=== PATIENT | female | born 1995 | race Two or more races ===

== ENCOUNTER → 2022-11-16 12:31 | Outpatient (BNVA) | payer MEDICAID, SELFPAY | PROVIDERS: PCP Internal Medicine; Visit Provider Internal Medicine | DX: K91.2 Postsurgical malabsorption, not elsewhere classified (principal); R62.7 Adult failure to thrive; P27.9 Unspecified chronic respiratory disease originating in the perinatal period; P07.30 Preterm newborn, unspecified weeks of gestation | CPT/HCPCS: 99202 ==

== ENCOUNTER 2022-12-07 07:31 | Outpatient (REF) | payer MEDICAID, SELFPAY ==
--- NOTE | ~2022-12-07 | US_ITS ---
EXAMINATION: US ABDOMEN COMPLETE CLINICAL INFORMATION: Postsurgical malabsorption, prolonged parenteral nutrition. COMPARISON: None TECHNIQUE: Real-time imaging of the abdominal viscera. FINDINGS: PANCREAS: The pancreas appears unremarkable except for heterogeneous coarse echotexture, without masses or ductal dilatation. The pancreatic tail is obscured by bowel gas. ABDOMINAL AORTA: The proximal, mid, and distal segments are normal in caliber. INFERIOR VENA CAVA: Visualized portions are normal. LIVER: Normal. The liver is normal in size. The liver contour is normal. Parenchymal echogenicity is normal. No focal hepatic lesion. There is no intrahepatic biliary duct dilatation seen. GALLBLADDER: The gallbladder is physiologically distended. Two mobile gallstones are present measuring just over a centimeter in size each. No evidence of gallbladder wall thickening or pericholecystic fluid. COMMON BILE DUCT: Normal in caliber measuring 0.3 cm in diameter. RIGHT KIDNEY: Normal. No hydronephrosis. No renal calculi or focal parenchymal lesions. The kidney measures 9.7 cm in maximum dimension. LEFT KIDNEY: No hydronephrosis or renal calculi. The kidney measures 9.2 cm in maximum dimension. At the lower pole there is a 1.0 x 1.3 x 1.2 cm cyst present with a focus of mural calcification, probably Bosniak class II. SPLEEN: Normal. The spleen measures 11.2 cm in maximum dimension. FREE FLUID: None. US/US abdomen complete IMPRESSION: 1. Cholelithiasis without evidence of cholecystitis. 2. Probable Bosniak class II left lower pole renal cyst. As this is the first imaging exam, recommend a follow-up renal ultrasound in six months to one year.
[2022-12-07 09:35] LABS: Hematocrit 46.9 % (37.0-47.0); Hemoglobin 15.3 g/dl (12.0-16.0); Mean Corpuscular HGB Conc 32.6 g/dl (31.0-35.0); Mean Corpuscular Hemoglobin 27.5 pg (27.0-33.0); Mean Corpuscular Volume 84.4 fL (80.0-98.0); Mean Platelet Volume 12.5 fL (9.4-12.3); Platelet Count 143 X10*3/uL (160-400); Red Blood Count 5.56 X10*6/uL (4.20-5.50); White Blood Count 6.9 X10*3/uL (4.8-10.8)
[2022-12-07 09:39] LABS: INTERNATIONAL NORM RATIO 1.1 (0.9-1.1); Prothrombin Time 12.3 SEC (10.0-13.1)
[2022-12-07 10:07] LABS: Alanine Aminotransferase 13 U/L (0-31); Albumin Level 4.3 g/dL (3.5-5.0); Alkaline Phosphatase 52 U/L (39-117); Anion Gap 11 (12-20); Aspartate Amino Transferase 17 U/L (5-31); Bilirubin Total 0.8 mg/dL (0.0-1.0); Blood Urea Nitrogen 9 mg/dL (9-16); Calcium 9.2 mg/dL (8.4-10.2); Carbon Dioxide 24 mmol/L (22-29); Chloride 107 mmol/L (96-108); Estimated Glomerular Filt Rate > 60; Glucose Random 87 mg/dL (60-115); Iron 166 mcg/dL (30-160); Magnesium 1.9 mg/dL (1.6-2.6); Percent Iron Saturation 44 % (15-50); Sodium 138 mmol/L (135-145); Total Iron Binding Capacity 380 mcg/dL (228-428); Total Protein 7.1 g/dL (6.5-8.0); Unsaturated Iron Binding 214 ug/dL
[2022-12-07 10:40] LABS: Ferritin 11 ng/mL (10-122); Vitamin B12 500 pg/mL (200-900); Vitamin D 25-OH Total 80.1 ng/mL (>30)
[2022-12-09 17:28] LABS: Calcium, Ionized 5.1 mg/dL (4.8-5.6)
[2022-12-12 06:43] LABS: Zinc 71 mcg/dL (60-130)
[2022-12-13 02:14] LABS: Vitamin A 45 mcg/dL (38-98)
[2022-12-14 03:25] LABS: Alpha-Tocopherol 10.3 mg/L (5.7-19.9); Beta-Gamma Tocopherol <1.0 mg/L (<=4.3)
== END 2022-12-07 07:32 | disposition home or self-care (01) ==
LOC: HO.US 07:31
PROVIDERS: Visit Provider Internal Medicine
DX: K91.2 Postsurgical malabsorption, not elsewhere classified (principal)
CPT/HCPCS: 36415; 76700; 80053; 82306; 82330; 82607; 82728; 82746; 83540; 83735; 84446; 84590; 84630; 85027; 85610

== ENCOUNTER → 2022-12-22 12:58 | Outpatient (BNVA) | payer MEDICAID, SELFPAY | PROVIDERS: PCP Registered Nurse; Referring Provider Internal Medicine; Visit Provider Surgery | DX: K80.20 Calculus of gallbladder without cholecystitis without obstruction (principal); K91.2 Postsurgical malabsorption, not elsewhere classified; D69.6 Thrombocytopenia, unspecified; R62.7 Adult failure to thrive; P27.9 Unspecified chronic respiratory disease originating in the perinatal period; P07.30 Preterm newborn, unspecified weeks of gestation | CPT/HCPCS: 99202 ==

== ENCOUNTER → 2022-12-23 14:34 | Outpatient (BNVA) | payer MEDICAID, SELFPAY | PROVIDERS: PCP Registered Nurse; Visit Provider Hospitalist | DX: J45.40 Moderate persistent asthma, uncomplicated (principal); R06.02 Shortness of breath; R06.1 Stridor | CPT/HCPCS: 99202 ==

== ENCOUNTER 2022-12-26 09:45 | Outpatient (REF) | payer MEDICAID, SELFPAY ==
--- NOTE | ~2022-12-26 | XR_ITS ---
EXAMINATION: XR CHEST 2 VIEWS CLINICAL INFORMATION: Asthma. COMPARISON: Chest radiographs dated 10/25/2017. TECHNIQUE: Frontal and lateral views of the chest were obtained. FINDINGS: The heart, great vessels, pulmonary vasculature and mediastinum are normal. The lungs show no focal infiltrate, effusion or pneumothorax. There is mild hyperinflation. A minimal focus of scar/subsegmental atelectasis is seen at the lateral right base. There is no acute osseous abnormality. XR/XR chest 2V IMPRESSION: 1. There is mild hyperinflation. 2. No focal infiltrate is seen. 3. A minimal focus of scar/subsegmental atelectasis is seen at the lateral right base.
[2022-12-26 10:10] LABS: MANUAL DIFF FLAG NO
[2022-12-26 11:00] LABS: Basophils Absolute Auto 0.1 X10*3/uL (0.0-0.2); Basophils Percent Auto 0.9 % (0-2); Eosinophils Absolute Auto 0.1 X10*3/uL (0.0-0.4); Eosinophils Percent Auto 1.3 % (0-4); Hematocrit 47.3 % (37.0-47.0); Hemoglobin 15.1 g/dl (12.0-16.0); Imm Gran Abs Auto 0.02 X10*3/uL (0.00-0.03); Imm Gran Pct Auto 0.4 % (0.0-0.4); Lymphocytes Absolute Auto 1.5 X10*3/uL (1.2-4.9); Lymphocytes Percent Auto 26.8 % (20-40); Mean Corpuscular HGB Conc 31.9 g/dl (31.0-35.0); Mean Corpuscular Hemoglobin 27.8 pg (27.0-33.0); Mean Corpuscular Volume 86.9 fL (80.0-98.0); Mean Platelet Volume 11.8 fL (9.4-12.3); Monocytes Absolute Auto 0.2 X10*3/uL (0.1-1.2); Monocytes Percent Auto 4.3 % (2-11); Neutrophils Absolute Auto 3.7 x10*3/uL (2.0-8.3); Neutrophils Percent Auto 66.3 % (45-73); Platelet Count 211 X10*3/uL (160-400); Red Blood Count 5.44 X10*6/uL (4.20-5.50); Red Cell Distribution Width 13.1 % (11.0-16.0); White Blood Count 5.5 X10*3/uL (4.8-10.8)
[2022-12-26 11:41] LABS: Erythrocyte Sedimentation Rate 1 MM/HR (0-20)
[2022-12-28 15:38] LABS: IgA 325 mg/dL (47-310); IgG 1279 mg/dL (600-1640); IgM 164 mg/dL (50-300)
== END 2022-12-26 09:46 | disposition home or self-care (01) ==
LOC: HO.LAB 09:45
PROVIDERS: PCP Registered Nurse; Visit Provider Hospitalist
DX: R06.00 Dyspnea, unspecified (principal); J45.909 Unspecified asthma, uncomplicated
CPT/HCPCS: 36415; 71046; 82784; 82785; 85025; 85652; 86003

== ENCOUNTER 2023-01-05 09:03 | Outpatient (REF) | payer MEDICAID, SELFPAY ==
--- NOTE | 2023-01-05 | PFT_ITS ---
FINDINGS: Patient was unable to perform lung volume maneuver despite multiple attempts. Pulmonary function test was canceled. IMPRESSION: Canceled pulmonary function test. MD LUZ ELENA Carmichael/CORNELIO / [phone]
== END 2023-01-05 09:04 | disposition home or self-care (01) ==
LOC: HO.RESP 09:03
PROVIDERS: PCP Registered Nurse; Visit Provider Hospitalist
DX: Z13.89 Encounter for screening for other disorder (principal)

== ENCOUNTER → 2023-01-19 10:40 | Outpatient (BNVA) | payer MEDICAID, SELFPAY | PROVIDERS: PCP Registered Nurse; Visit Provider Hospitalist | DX: J45.40 Moderate persistent asthma, uncomplicated (principal); R06.02 Shortness of breath; R06.1 Stridor | CPT/HCPCS: 99212 ==

== ENCOUNTER 2023-05-15 09:57 | Outpatient (AMB) | payer MEDICAID, SELFPAY ==
--- NOTE | 2023-05-15 10:12 | MHC.OFFVIS ---
Intake Vital Signs 05/15/23 10:13 Height 5 ft Weight 92 lb 9.506 oz BMI 18.1 BP 106/58 L Blood Pressure Location Lt brachial Position Sitting Pulse 99 Intake Visit Reasons: 6 months follow up Intake Note: Maricarmen presents in the office as a follow up. CC: She states that she is not having any concerns today. 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 11/16/22: Pt is here accompanied by her mom. History was obtained with the help of a site interpreter. Pt currently has no gastrointestinal complaints to include abdominal pain, N,V,D, blood in stool, bloating. Reports good appetite. No significant GI losses, has one formed BM daily or every other day. Diet has a good mix of carbohydrates, protein and fat. Pt also drinks a lot of fruit juices and soda. Pertinent hx includes NICU admission in infancy due to premature . Mother reports extensive resection of both large and small intestine and reports pt was on parenteral nutrition for almost 5 years. Has not seen a doctor in almost 10y, recently moved from [facility] and established with a PCP who then referred to GI. Previous GI was in [facility] almost 10 years ago. 05/15/23: No gastrointestinal complaints to include abd pain, N,V, diarrhea. Weight stable. Labs reviewed and no micronutrient/vitamin deficiency noted. LFTs normal, no cholestasis. US Abd revewed - liver appears normal. GB with 1 cm gallstones. Has been seen by Pulm (being managed for asthma) and general surgery (hold off CCY if asymptomatic). [facility] Medical History Asthma Dyspnea Stridor Surgical History H/O resection of large bowel History of resection of small bowel Family History Mother Uterine cancer Hyperthyroidism Asthma Maternal Grandfather Stomach cancer Social History Household Members Other:: mother Alcohol intake: never Patient Tobacco Use Status: Never used Tobacco Review of Systems Const All systems reviewed & are unremarkable except as noted in HPI and below Physical Exam Vital Signs: Last Vital Signs Pulse 99 05/15/23 10:13 BP 106/58 L 05/15/23 10:13 BMI result Body Mass Index 18.1 Gen appear: NAD HEENT: nonicteric, no cervical lymphadenopathy Chest: CTA CVS: Regular S1/S2 Abd: soft, nontender, nondistended, bowel sounds + Ext: no peripheral edema Neuro: A/Ox3, noted to move all extremities spontaneously Psych: interacting appropriately Assessment & Plan Assessment & Plan (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 Currently no concerns for abd bloating/SIBO, high GI output, dysmotility or bleeding. Nutrient check completed as above. Plan: - Cont protein shakes as advised by Computer Graphics Illustrator. - Advised to avoid high osmotic load foods such as sodas or fruit juices - No indication for routine pedialyte however can take it PRN for dehydration/diarrhea. Follow up in a year Coding Level of Care Code Est Pt Level 4 (80311) Diagnoses Short bowel syndrome K91.2
[2023-05-15 10:13] VITALS: BP 106/58; PULSE 99; BMI 18.1
== END 2023-05-15 11:04 | disposition home or self-care (01) ==
PROVIDERS: Visit Provider Internal Medicine
DX: K91.2 Postsurgical malabsorption, not elsewhere classified (principal)
CPT/HCPCS: 99214

== ENCOUNTER → 2023-05-15 09:57 | Outpatient (BNVA) | payer MEDICAID, SELFPAY | PROVIDERS: Visit Provider Internal Medicine | DX: K91.2 Postsurgical malabsorption, not elsewhere classified (principal) | CPT/HCPCS: 99212 ==

== ENCOUNTER 2023-11-22 10:51 | Outpatient (AMB) | payer MEDICAID, SELFPAY ==
[2023-11-22 11:03] VITALS: BP 110/70; PULSE 90; O2SAT 97; BMI 18.1
--- NOTE | 2023-11-22 11:03 | A.OFFVIS_ITS ---
Intake Vital Signs 11/22/23 11:03 Height 5 ft Weight 92 lb 9.506 oz BMI 18.1 BP 110/70 Blood Pressure Location Rt brachial Position Sitting Pulse 90 Pulse Source Pulse Oximeter Pulse Oximetry (%) 97 Oxygen Delivery Method Room Air Intake Visit Reasons: Asthma Allergies ibuprofen [From Advil] Adverse Reaction (Severe, Verified 11/22/23 11:06) Swelling HPI HPI Comments History of Present Illness Details The patient is a 27 year woman who was born prematurely required intubation initially upon . She did require bowel resection now with short-bowel syndrome. Recently she moved from [place] to the [facility] about 2 years ago. Overall the patient has been complaining of worsening shortness of breath. It has been happening now for the last several months. She denies ever having respiratory issues in the past suggesting less likely congenital issue. But the question of a broncho-pulmonary dysplasia (BPD) was brought up. The patient has not had any imaging studies to review or pulmonary function studies therefore I will order those. She was also given a rescue inhaler that has been partially helpful. She also will send a maintenance inhaler although she had not used it yet. She is not where the name. On examination she did have some inspiratory wheezing and some diminished breath sounds bilaterally. Therefore will have to address for any upper airway obstruction issues and or obstructive airway disease. The patient should start the inhaler that she was provided initially. Will also request blood work in addition to pulmonary function studies and chest x-ray. When she starts the inhaler over the weekend she is going to try that. If she is not better she is going to call the office and will send her additional therapies. When she gets her x-ray and PFTs and blood work she will return for follow-up. 01/19/2023 the patient is here for a pulm onary follow-up visit. Overall the patient is doing a lot better. She did take the prednisone and did help her. In addition to that she started the Symbicort and she does use it twice a day. She does rinse her mouth well. Her chest tightness and shortness of breath have improved. She is back to her baseline. She is reassured. We did review her allergy testing she does have some slight allergies and can consider allergy therapy such as singular in the near future. In addition to that the patient had pulmonary function studies. But, the patient could not complete them because she could not follow the instructions in complete the maneuvers. The a chest x-ray was reassuring without any acute disease. No evidence of any pulmonary dysplasia or congenital lung disease that I could appreciate. She likely has allergic asthma and did have some component of stridor which at this point has improved. She has responded well to the Symbicort. If she has any issues she can always call and we can always start Singulair. Otherwise will follow-up in the fall 2022. 11/22/2023 the patient is here for a pulm onary follow-up visit. Overall the patient has been doing well. She does uses Symbicort. She does use it as needed only when she feels chest tightness. She feels like she is doing well. She does not use it often typically less than twice a week. She has not had to use her rescue inhaler. She does have allergies including dust mites. She does not have any carpets although explained to the family that even the bedding can be an issue. She is also allergic to cover chest. There other things that she is allergic to that we may have not checked. I do believe that she has allergic asthma. Therefore, based on the fact that she still having some wheezing on examination I do believe that singular be a good option for her. Therefore she will go ahead and started at nighttime. We did review her last chest x-ray demonstrating just have him hyperinflation explained to them that is related to the asthma. In addition to that we did review her blood work which is reassuring otherwise. Will follow-up in the fall. If the patient has any issues prior to that she will call for an earlier assessment. [facility] Medical History Asthma Dyspnea Stridor Surgical History H/O resection of large bowel History of resection of small bowel Family History Mother Uterine cancer Hyperthyroidism Asthma Maternal Grandfather Stomach cancer Social History Household Members Other:: mother Alcohol intake: never Patient Tobacco Use Status: Never used Tobacco Review of Systems Const Denies fatigue Eyes Denies change in vision and Denies itchy eyes ENT Denies change in voice Card Denies chest pain and Denies dyspnea on exertion Resp Reports cough, Denies dyspnea on exertion and Reports wheezing GI Reports no additional complaints Musc Reports no additional complaints Skin/Breast Reports rash Neuro Reports no additional complaints Endo Reports no additional complaints and Denies fatigue Tucker/Lymph Denies easy bruising Aller/Immun Denies itchy eyes and Reports wheezing Physical Exam Vital Signs: Last Vital Signs Pulse 90 11/22/23 11:03 BP 110/70 11/22/23 11:03 Pulse Ox 97 11/22/23 11:03 Oxygen Delivery Method Room Air 11/22/23 11:03 BMI result Body Mass Index 18.1 Const General: comfortable HEENT Head: Yes normocephalic Neck Neck: Yes supple Chest Chest palpation & inspection: normal inspection of the chest Resp Effort & Inspection: normal respiratory effort and no stridor Auscultation: wheezes and diminished lung sounds Cardio Rate: regular rate Rhythm: regular rhythm Heart sounds: S1 normal heart sound present and S2 normal heart sound present GI Palpation (GI): Soft to palpation Skin General skin exam: no rashes or lesions noted Extrem General: Yes no clubbing, cyanosis or edema Assessment & Plan Assessment & Plan (1) Asthma: Code(s): J45.909 - Unspecified asthma, uncomplicated Qualifiers: Asthma complication type: uncomplicated Asthma persistence: persistent Asthma severity: moderate Qualified Code(s): J45.40 - Moderate persistent asthma, uncomplicated (2) Dyspnea: Comment: resolved Code(s): R06.00 - Dyspnea, unspecified Qualifiers: Dyspnea type: shortness of breath Qualified Code(s): R06.02 - Shortness of breath Plan continue Symbicort BID CHARISSA as needed start singulair F/U 12 months Medications: New montelukast (Singulair) 10 mg PO BEDTIME 30 days 30 tabs 11RF J45.909 - Unspecified asthma, uncomplicated Coding Level of Care Code Est Pt Level 4 (21286) Diagnoses Moderate persistent asthma without complication J45.40 Asthma complication type: uncomplicated Asthma persistence: persistent Asthma severity: moderate Shortness of breath R06.02 Dyspnea type: shortness of breath Time Spent (min) 17
== END 2023-11-22 11:27 | disposition home or self-care (01) ==
PROVIDERS: PCP Registered Nurse; Visit Provider Hospitalist
DX: J45.40 Moderate persistent asthma, uncomplicated (principal); R06.02 Shortness of breath
CPT/HCPCS: 99214

== ENCOUNTER → 2023-11-22 10:51 | Outpatient (BNVA) | payer MEDICAID, SELFPAY | PROVIDERS: PCP Registered Nurse; Visit Provider Hospitalist | DX: J45.40 Moderate persistent asthma, uncomplicated (principal) | CPT/HCPCS: 99212 ==

== ENCOUNTER 2024-06-05 14:29 | Outpatient (AMB) | payer MEDICAID, SELFPAY ==
--- NOTE | 2024-06-05 14:37 | A.OFFVIS_ITS ---
Vital Signs 06/05/24 14:40 Height 5 ft Weight 90 lb BMI 17.6 BP 113/68 Blood Pressure Location Lt brachial Position Sitting Pulse 86 Intake Visit Reasons: 1 year follow up Intake Note: Patient yearly follow up for Short Bowel syndrome Patient denies any GI issues. 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 11/16/22: Pt is here accompanied by her mom. History was obtained with the help of a tank shop supervisor. Pt currently has no gastrointestinal complaints to include abdominal pain, N,V,D, blood in stool, bloating. Reports good appetite. No significant GI losses, has one formed BM daily or every other day. Diet has a good mix of carbohydrates, protein and fat. Pt also drinks a lot of fruit juices and soda. Pertinent hx includes NICU admission in infancy due to premature . Mother reports extensive resection of both large and small intestine and reports pt was on parenteral nutrition for almost 5 years. Has not seen a doctor in almost 10y, recently moved from [facility] and established with a PCP who then referred to GI. Previous GI was in [facility] almost 10 years ago. 05/15/23: No gastrointestinal complaints to include abd pain, N,V, diarrhea. Weight stable. Labs reviewed and no micronutrient/vitamin deficiency noted. LFTs normal, no cholestasis. US Abd revewed - liver appears normal. GB with 1 cm gallstones. Has been seen by Pulm (being managed for asthma) and general surgery (hold off CCY if asymptomatic). 06/05/24: Here for routine follow up. No acute GI issues. No abd pain, N,V,D. Stools are formed and once a day. No blood in stool. Has also remained asymptomatic from gallsgtones standpoint. PFSH Medical History Asthma Stridor Dyspnea Surgical History History of resection of small bowel H/O resection of large bowel Family History Mother Uterine cancer Hyperthyroidism Asthma Maternal Grandfather Stomach cancer Social History Household Members Other:: mother Alcohol intake: never Patient Tobacco Use Status: Never used Tobacco Review of Systems Const All systems reviewed & are unremarkable except as noted in HPI and below Physical Exam Vital Signs: Last Vital Signs Pulse 86 06/05/24 14:40 BP 113/68 06/05/24 14:40 BMI result Body Mass Index 17.6 No apparent distress Nonicteric Abdomen soft, nondistended, abd surgery scars Alert and oriented x3, normal gait Assessment & Plan Assessment & Plan (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 Currently no concerns for abd bloating/SIBO, high GI output, dysmotility or bleeding. Due for a nutrient check - ordered Plan: - Cont protein shakes - Advised to avoid high osmotic load foods such as sodas or fruit juices - Labs ordered as below. Follow up in a year Orders: Orders Complete Blood Count no Diff Today K91.2 - Postsurgical malabsorption, not elsewhere classified Ferritin Today K91.2 - Postsurgical malabsorption, not elsewhere classified Vitamin D 25-OH Total Today K91.2 - Postsurgical malabsorption, not elsewhere classified Calcium Today K91.2 - Postsurgical malabsorption, not elsewhere classified Vitamin E Today K91.2 - Postsurgical malabsorption, not elsewhere classified Vitamin D 1,25 dihydroxy Today K91.2 - Postsurgical malabsorption, not elsewhere classified Vitamin K1 Today K91.2 - Postsurgical malabsorption, not elsewhere classified Comprehensive Met. Panel Today K91.2 - Postsurgical malabsorption, not elsewhere classified IRON PROFILE Today K91.2 - Postsurgical malabsorption, not elsewhere classified Vitamin B12 and Folate Today K91.2 - Postsurgical malabsorption, not elsewhere classified Vitamin A Today K91.2 - Postsurgical malabsorption, not elsewhere classified Magnesium Today K91.2 - Postsurgical malabsorption, not elsewhere classified Coding Level of Care Code Est Pt Level 3 (28087) Diagnoses Short bowel syndrome K91.2
[2024-06-05 14:40] VITALS: BP 113/68; PULSE 86; BMI 17.6
== END 2024-06-05 15:17 | disposition home or self-care (01) ==
PROVIDERS: PCP Registered Nurse; Visit Provider Internal Medicine
DX: K91.2 Postsurgical malabsorption, not elsewhere classified (principal)
CPT/HCPCS: 99213

== ENCOUNTER → 2024-06-05 14:29 | Outpatient (BNVA) | payer MEDICAID, SELFPAY | PROVIDERS: PCP Registered Nurse; Visit Provider Internal Medicine | DX: K91.2 Postsurgical malabsorption, not elsewhere classified (principal) | CPT/HCPCS: 99212 ==

== ENCOUNTER 2024-07-03 09:15 | Outpatient (REF) | payer MEDICAID, SELFPAY ==
[2024-07-03 10:29] LABS: Hematocrit 46.7 % (37.0-47.0); Hemoglobin 15.3 g/dl (12.0-16.0); Mean Corpuscular HGB Conc 32.8 g/dl (31.0-35.0); Mean Corpuscular Hemoglobin 28.3 pg (27.0-33.0); Mean Corpuscular Volume 86.5 fL (80.0-98.0); Mean Platelet Volume 12.9 fL (9.4-12.3); Platelet Count 144 X10*3/uL (160-400); Red Cell Distribution Width 12.9 % (11.0-16.0)
[2024-07-03 11:25] LABS: Alanine Aminotransferase 13 U/L (0-31); Albumin Level 4.6 g/dL (3.5-5.0); Alkaline Phosphatase 55 U/L (39-117); Anion Gap 12 (12-20); Aspartate Amino Transferase 16 U/L (5-31); Bilirubin Total 0.7 mg/dL (0.0-1.0); Blood Urea Nitrogen 9 mg/dL (9-16); Calcium 9.9 mg/dL (8.4-10.2); Carbon Dioxide 25 mmol/L (22-29); Chloride 108 mmol/L (96-108); Estimated Glomerular Filt Rate > 60; Glucose Random 93 mg/dL (60-115); Iron 77 mcg/dL (30-160); Magnesium 2.2 mg/dL (1.6-2.6); Percent Iron Saturation 23 % (15-50); Potassium 4.4 mmol/L (3.3-5.1); Sodium 141 mmol/L (135-145); Total Iron Binding Capacity 340 mcg/dL (228-428); Total Protein 7.8 g/dL (6.5-8.0); Unsaturated Iron Binding 263 ug/dL
[2024-07-03 11:28] LABS: Folate 17.9 ng/mL (> or = 4.0); Vitamin B12 700 pg/mL (200-900)
[2024-07-03 11:30] LABS: Ferritin 34 ng/mL (10-122); Vitamin D 25-OH Total 36.2 ng/mL (>30)
[2024-07-07 10:29] LABS: Alpha-Tocopherol 8.6 mg/L (5.7-19.9); Beta-Gamma Tocopherol <1.0 mg/L (<=4.3)
[2024-07-07 10:40] LABS: Vitamin A 42 mcg/dL (38-98)
[2024-07-07 20:54] LABS: VITAMIN D (1,25 OH) D3 45 pg/mL; Vit D (1,25-Dihydroxy) Total 45 pg/mL (18-72); Vitamin D (1,25 OH) D2 <8 pg/mL
[2024-07-11 12:43] LABS: Vitamin K1 187 pg/mL (130-1500)
== END 2024-07-03 09:16 | disposition home or self-care (01) ==
LOC: HO.LAB 09:15
PROVIDERS: PCP Registered Nurse; Visit Provider Internal Medicine
DX: K91.2 Postsurgical malabsorption, not elsewhere classified (principal)
CPT/HCPCS: 36415; 80053; 82306; 82607; 82652; 82728; 82746; 83540; 83735; 84446; 84590; 84597; 85027

== ENCOUNTER 2024-07-26 11:10 | Outpatient (AMB) | payer MEDICAID, SELFPAY ==
--- NOTE | 2024-07-26 11:20 | MHC.OFFVIS ---
Vital Signs 07/26/24 11:21 Height 5 ft Weight 92 lb 9.506 oz BMI 18.1 BP 100/70 Blood Pressure Location Rt brachial Position Sitting Pulse 90 Pulse Source Pulse Oximeter Pulse Oximetry (%) 99 Oxygen Delivery Method Room Air Intake Visit Reasons: Asthma [employer] Officer Required: No Allergies ibuprofen [From Advil] Adverse Reaction (Severe, Verified 07/26/24 11:23) Swelling HPI Comments Details: The patient is a 27 year woman who was born prematurely required intubation initially upon . She did require bowel resection now with short-bowel syndrome. Recently she moved from [place] to the [facility] about 2 years ago. Overall the patient has been complaining of worsening shortness of breath. It has been happening now for the last several months. She denies ever having respiratory issues in the past suggesting less likely congenital issue. But the question of a broncho-pulmonary dysplasia (BPD) was brought up. The patient has not had any imaging studies to review or pulmonary function studies therefore I will order those. She was also given a rescue inhaler that has been partially helpful. She also will send a maintenance inhaler although she had not used it yet. She is not where the name. On examination she did have some inspiratory wheezing and some diminished breath sounds bilaterally. Therefore will have to address for any upper airway obstruction issues and or obstructive airway disease. The patient should start the inhaler that she was provided initially. Will also request blood work in addition to pulmonary function studies and chest x-ray. When she starts the inhaler over the weekend she is going to try that. If she is not better she is going to call the office and will send her additional therapies. When she gets her x-ray and PFTs and blood work she will return for follow-up. 01/19/2023 the patient is here for a pulmonary follow-up visit. Overall the patient is doing a lot better. She did take the prednisone and did help her. In addition to that she started the Symbicort and she does use it twice a day. She does rinse her mouth well. Her chest tightness and shortness of breath have improved. She is back to her baseline. She is reassured. We did review her allergy testing she does have some slight allergies and can consider allergy therapy such as singular in the near future. In addition to that the patient had pulmonary function studies. But, the patient could not complete them because she could not follow the instructions in complete the maneuvers. The a chest x-ray was reassuring without any acute disease. No evidence of any pulmonary dysplasia or congenital lung disease that I could appreciate. She likely has allergic asthma and did have some component of stridor which at this point has improved. She has responded well to the Symbicort. If she has any issues she can always call and we can always start Singulair. Otherwise will follow-up in the fall 2022. 11/22/2023 the patient is here for a pulmonary follow-up visit. Overall the patient has been doing well. She does uses Symbicort. She does use it as needed only when she feels chest tightness. She feels like she is doing well. She does not use it often typically less than twice a week. She has not had to use her rescue inhaler. She does have allergies including dust mites. She does not have any carpets although explained to the family that even the bedding can be an issue. She is also allergic to cover chest. There other things that she is allergic to that we may have not checked. I do believe that she has allergic asthma. Therefore, based on the fact that she still having some wheezing on examination I do believe that singular be a good option for her. Therefore she will go ahead and started at nighttime. We did review her last chest x-ray demonstrating just have him hyperinflation explained to them that is related to the asthma. In addition to that we did review her blood work which is reassuring otherwise. Will follow-up in the fall of 2023. If the patient has any issues prior to that she will call for an earlier assessment. 07/26/2024 the patient is here for a pulmonary follow-up visit. Overall the patient continues to do well. She does respond well to the Singulair. She does take it every night. Sometimes she forgets and then after a week she started noticing worsening symptoms. She does have worsening allergies and asthma symptoms in the summer. Typically in the winter months she is able to cut back. It is reasonable for her to use her Singulair seasonally. In the meantime she has a Symbicort inhaler. She has not had to use her rescue inhaler which is reassuring. She is stable from a pulmonary standpoint. No additional therapies warranted. If the patient has any worsening symptoms she will call otherwise will follow-up in a year's time. [facility] Medical History Asthma Stridor Dyspnea Surgical History History of resection of small bowel H/O resection of large bowel Family History Mother Uterine cancer Hyperthyroidism Asthma Maternal Grandfather Stomach cancer Social History Household Members Other:: mother Alcohol intake: never Patient Tobacco Use Status: Never used Tobacco Review of Systems Const Denies fatigue Eyes Denies change in vision and Denies itchy eyes ENT Denies change in voice Card Denies chest pain and Denies dyspnea on exertion Resp Reports cough, Denies dyspnea on exertion and Reports wheezing GI Reports no additional complaints Musc Reports no additional complaints Skin/Breast Reports rash Neuro Reports no additional complaints Endo Reports no additional complaints and Denies fatigue Tucker/Lymph Denies easy bruising Aller/Immun Denies itchy eyes and Reports wheezing Physical Exam Vital Signs: Last Vital Signs Pulse 90 07/26/24 11:21 BP 100/70 07/26/24 11:21 Pulse Ox 99 07/26/24 11:21 Oxygen Delivery Method Room Air 07/26/24 11:21 BMI result Body Mass Index 18.1 Const General: comfortable HEENT Head: Yes normocephalic Neck Neck: Yes supple Chest Chest palpation & inspection: normal inspection of the chest Resp Effort & Inspection: normal respiratory effort and no stridor Auscultation: clear to auscultation bilaterally and no wheezes Cardio Rate: regular rate Rhythm: regular rhythm Heart sounds: S1 normal heart sound present and S2 normal heart sound present GI Palpation (GI): Soft to palpation Skin General skin exam: no rashes or lesions noted Extrem General: Yes no clubbing, cyanosis or edema Assessment & Plan Assessment & Plan (1) Asthma: Code(s): J45.909 - Unspecified asthma, uncomplicated Category: Medical Qualifiers: Asthma complication type: uncomplicated Asthma persistence: persistent Asthma severity: moderate Qualified Code(s): J45.40 - Moderate persistent asthma, uncomplicated (2) Dyspnea: Comment: resolved Code(s): R06.00 - Dyspnea, unspecified Category: Medical Qualifiers: Dyspnea type: shortness of breath Qualified Code(s): R06.02 - Shortness of breath Plan continue Symbicort BID CHARISSA as needed continue singulair, seasonally ok F/U 12 months Coding Level of Care Code Est Pt Level 4 (00931) Diagnoses Moderate persistent asthma without complication J45.40 Asthma complication type: uncomplicated Asthma persistence: persistent Asthma severity: moderate Shortness of breath R06.02 Dyspnea type: shortness of breath Time Spent (min) 15
[2024-07-26 11:21] VITALS: BP 100/70; PULSE 90; O2SAT 99; BMI 18.1
== END 2024-07-26 11:38 | disposition home or self-care (01) ==
PROVIDERS: PCP Registered Nurse; Referring Provider Registered Nurse; Visit Provider Hospitalist
DX: J45.40 Moderate persistent asthma, uncomplicated (principal); R06.02 Shortness of breath
CPT/HCPCS: 99214

== ENCOUNTER → 2024-07-26 11:10 | Outpatient (BNVA) | payer MEDICAID, SELFPAY | PROVIDERS: PCP Registered Nurse; Visit Provider Hospitalist | DX: J45.40 Moderate persistent asthma, uncomplicated (principal) | CPT/HCPCS: 99212 ==

== ENCOUNTER 2025-06-02 08:37 | Outpatient (AMB) | payer MEDICAID, SELFPAY ==
--- NOTE | 2025-06-02 08:43 | A.OFFVIS_ITS ---
Vital Signs 06/02/25 08:46 Height 5 ft Weight 92 lb 9.506 oz BMI 18.1 BP 112/72 Blood Pressure Location Lt brachial Position Sitting Pulse 97 Intake Visit Reasons: 1 year follow up Intake Note: Maricarmen presents in the office as a 1 year follow up. CC: She states that she is feeling okay and not having any concerns. 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 11/16/22: Pt is here accompanied by her mom. History was obtained with the help of a transit mixer operator. Pt currently has no gastrointestinal complaints to include abdominal pain, N,V,D, blood in stool, bloating. Reports good appetite. No significant GI losses, has one formed BM daily or every other day. Diet has a good mix of carbohydrates, protein and fat. Pt also drinks a lot of fruit juices and soda. Pertinent hx includes NICU admission in infancy due to premature . Mother reports extensive resection of both large and small intestine and reports pt was on parenteral nutrition for almost 5 years. Has not seen a doctor in almost 10y, recently moved from [facility] and established with a PCP who then referred to GI. Previous GI was in [facility] almost 10 years ago. 05/15/23: No gastrointestinal complaints to include abd pain, N,V, diarrhea. Weight stable. Labs reviewed and no micronutrient/vitamin deficiency noted. LFTs normal, no cholestasis. US Abd revewed - liver appears normal. GB with 1 cm gallstones. Has been seen by Pulm (being managed for asthma) and general surgery (hold off CCY if asymptomatic). 06/05/24: Here for routine follow up. No acute GI issues. No abd pain, N,V,D. Stools are formed and once a day. No blood in stool. Has also remained asymptomatic from gallsgtones standpoint. 06/02/25: Here for follow up. Accompanied by by her mother. Reports no acute issues. No abd pain,N,V. Not currently working. Stays at home. Limited physical activity. Also does not use protein shakes regularly. [facility] Medical History Asthma Stridor Dyspnea Surgical History History of resection of small bowel H/O resection of large bowel Family History Mother Uterine cancer Hyperthyroidism Asthma Maternal Grandfather Stomach cancer Social History Household Members Other:: mother Alcohol intake: never Patient Tobacco Use Status: Never used Tobacco Review of Systems Const All systems reviewed & are unremarkable except as noted in HPI and below Physical Exam Exam Exam: No apparent distress Nonicteric Abdomen soft, nondistended Alert and oriented x3, normal gait Vital Signs: Last Vital Signs Pulse 97 06/02/25 08:46 BP 112/72 06/02/25 08:46 BMI result Body Mass Index 18.1 Assessment & Plan Assessment & Plan (1) Short bowel syndrome: Code(s): K91.2 - Postsurgical malabsorption, not elsewhere classified Category: Medical (2) Cholelithiasis: Code(s): K80.20 - Calculus of gallbladder without cholecystitis without obstruction Category: Medical Plan 1. Currently no concerns for abd bloating/SIBO, high GI output, dysmotility or bleeding. Due for a nutrient check - ordered Plan: - Cont protein shakes - can take alternatives for ensure if better tolerated - Labs ordered as below. 2. Gallstones Noted on prev ultrasound. ASymptomatic currently. Will reorder an ultrasound to ensure no progression. Follow up in a year Orders: Orders US abdomen complete Today K80.20 - Calculus of gallbladder without cholecystitis without obstruction Complete Blood Count no Diff Today K91.2 - Postsurgical malabsorption, not elsewhere classified Comprehensive Met. Panel Today K91.2 - Postsurgical malabsorption, not elsewhere classified Vitamin E Today K91.2 - Postsurgical malabsorption, not elsewhere classified Vitamin A Today K91.2 - Postsurgical malabsorption, not elsewhere classified Vitamin B12 and Folate Today K91.2 - Postsurgical malabsorption, not elsewhere classified Vitamin D 25-OH Total Today K91.2 - Postsurgical malabsorption, not elsewhere classified Magnesium Today K91.2 - Postsurgical malabsorption, not elsewhere classified Coding Level of Care Code Est Pt Level 4 (65489) Diagnoses Short bowel syndrome K91.2 Cholelithiasis K80.20
[2025-06-02 08:46] VITALS: BP 112/72; PULSE 97; BMI 18.1
--- OUTSIDE RECORDS SUMMARY | 2025-06-02 08:59 | XMS_ITS | Clinical Summary ---
Author Organization [employer] Address [address] [place] [address] Care Team Providers Care Director Of Music Therapy Name Role Phone Unavailable Primary Care Provider Unavailabl e Allergies Active Allergy Reactions Criticality Noted Date Comments Ibuprofen Swelling High 10/12/2022 Medications montelukast (Singulair) 10 MG tablet Take 10 mg by mouth at bedtime. 08/02/2024 Active Active Problems Problem Noted Date Diagnosed Date Pityriasis versicolor 12/06/2017 Vitamin D deficiency 12/06/2017 Constipation 10/25/2017 Portosystemic venous shunt 10/25/2017 Short bowel syndrome 10/25/2017 Visual impairment 10/25/2017 Wheezing on auscultation 10/25/2017 Immunizations Immunization Administration Dates Next Due Influenza injectable quadriv alent IIV4 with preservative 12/06/2017 Family History Medical History Relation Name Comments Asthma Mother Thyroid disease Mother Relation Name Status Comments Mother Social History Tobacco Use Types Packs/Day Years Used Date Smoking Tobacco: Never Smokeless Tobacco: Never Tobacco Cessation:Counseling Given: Not Answered Alcohol Use Standard Drinks/Week Comments Never 0 (1 standard drink = 0.6 oz pur e alcohol) Depression Answer Date Recorded Patient Health Questionnaire-9 Score 0 12/15/2022 Housing Stability Answer Date Recorded What is your housing situation today? I have lukaszluz marina teran 08/28/[address] you li ve. Do you have problems with any of the following? None of the above 08/28/2023 Food Insecurity Answer Date Recorded Within the past 12 months, y ou worried that your food would run out before you got money to buy more: Never True 08/28/2023 Within the past 12 months,th e food you bought just didn't last and you didn't have enough money to get more: Never True 03/2023 Transportation Answer Date Recorded In the past 12 months, has l ack of transportation kept you from medical appts, meetings, work or from getting things needed for daily living? No 08/28/2023 Utilities Answer Date Recorded In the past 12 months, has t he electric, gas, oil or water company threatened to shut off services in your home? No 08/28/2023 Depression Answer Date Recorded Patient Health Questionnaire-2 Score 0 12/15/2022 Comments Unknown Sex and Gender Information Value Date Recorded Sex Assigned at Female 08/22/2022 10:32 AM EDT Legal Sex Female 10:32 AM EDT Gender Identity Choose not to disclose 10:32 AM EDT Sexual Orientation Choose not to disclose 2021 10:32 AM EDT Last Filed Vital Signs Vital Sign Reading Time Taken Comments Blood Pressure 131/82 12/15/2022 9:28 AM EST Pulse 114 12/15/2022 9:28 AM EST Temperature 36.9 C (98.5 F) 12/15/2022 9:28 AM EST Respiratory Rate 25 12/15/2022 9:28 AM EST Oxygen Saturation 97% 12/15/2022 9:28 AM EST Inhaled Oxygen Concentration - - Weight 42.2 kg (93 lb) 12/15/2022 9:28 AM EST Height 152.4 cm (5') 12/15/2022 9:28 AM EST Body Mass Index 18.16 12/15/2022 9:28 AM EST Plan of Treatment Health Maintenance Due Date Last Done Comments HIV Screening 1996 Disability Screening 1996 Alcohol/Substance Use Screening 2008 Family Planning (PISQ) 2011 HPV Vaccines (1 - 3-dose series) 2011 Hepatitis C Screening 2014 DTaP/Tdap/Td Vaccines (1 - Tdap) 2015 Hepatitis B Vaccines (1 of 3 - 19+ 3-dose series) 2015 Pap Smear 2017 Depression Screening 12/15/2023 12/15/2022, 12/15/2022 SDOH Screening 12/15/2023 12/15/2022 COVID-19 Vaccine ( - 2023-2 5 season) 2024 Influenza Vaccine (#1) 2025 12/06/2017 Tobacco Screening 10/04/2025 10/04/2024 Zoster Vaccines (1 of 2) 2046 RSV Patients and Patients Aged 60 years or older (1 - 1-dose 75+ series) 2071 HIB Vaccines Aged Out No longer eligi ble based on patient's age to complete this topic Hepatitis A Vaccines Aged Out No long er eligible based on patient's age to complete this topic IPV Vaccines Aged Out No longer eligi ble based on patient's age to complete this topic Meningococcal B Vaccine Aged Out No l onger eligible based on patient's age to complete this topic Meningococcal Vaccine Aged Out No mana robbie eligible based on patient's age to complete this topic Pneumococcal Vaccine: Pediatrics (0 to 5 Years) and At-Risk Patients (6 to 49) Years Aged Out No longer eligible b ased on patient's age to complete this topic RSV under 20 months Aged Out No longe r eligible based on patient's age to complete this topic Rotavirus Vaccines Aged Out No longer eligible based on patient's age to complete this topic Insurance [employer] C3 HSN FULL
== END 2025-06-02 09:44 | disposition home or self-care (01) ==
LOC: HO.HGI 08:38
PROVIDERS: PCP Registered Nurse; Visit Provider Internal Medicine
DX: K91.2 Postsurgical malabsorption, not elsewhere classified (principal); K80.20 Calculus of gallbladder without cholecystitis without obstruction
CPT/HCPCS: 99214

== ENCOUNTER → 2025-06-02 08:37 | Outpatient (BNVA) | payer MEDICAID, SELFPAY | PROVIDERS: PCP Registered Nurse; Visit Provider Internal Medicine | DX: K91.2 Postsurgical malabsorption, not elsewhere classified (principal); K80.20 Calculus of gallbladder without cholecystitis without obstruction | CPT/HCPCS: 99212 ==

== ENCOUNTER 2025-08-01 08:23 | Outpatient (REF) | payer MEDICAID, SELFPAY ==
--- NOTE | ~2025-08-01 | US_ITS ---
CLINICAL HISTORY: K80.20 - Calculus of gallbladder without cholecystitis without obstruction US abdomen complete Comparison: 12/07/2022 08:09 AM EST: US Findings: The visualized pancreas is normal. The aorta and inferior vena cava are normal caliber. The appearance of the liver suggests fatty infiltration. There is no intrahepatic bile duct dilatation. The common duct is 2.0 mm in diameter. There are gallstones. The gallbladder is otherwise normal. There is no sonographic Soto sign. The main portal vein is antegrade. The right kidney is 9.1 cm in length. The left kidney is 8.4 cm in length. The spleen is normal. No ascites. IMPRESSION: 1. Hepatic steatosis. 2. Cholelithiasis This document has been electronically signed by: Ike Elmore MD on 08/02/2025 08:59:47
--- OUTSIDE RECORDS SUMMARY | 2025-08-01 08:32 | XMS_ITS | Clinical Summary ---
Author Organization [employer] Address [address] [place] [address] Care Team Providers Care Mechanical System Technician Name Role Phone Unavailable Primary Care Provider [...] 12/15/2022 9:28 AM EST Plan of Treatment Upcoming Encounters Date Type Department Care Team (Late st Contact Info) Description 12/01/2025 11:00 AM EST Office Visit [facility] [address] [place] [address] Yash, Sandra, OD [address] [place] [address] Health Maintenance Due Date Last Done Comments HIV Screening 1996 Disability Screening 1996 Alcohol/Substance Use Screening 2008 Family Planning (PISQ) 2011 HPV Vaccines (1 - 3-dose series) 2011 Hepatitis C Screening 2014 DTaP/Tdap/Td Vaccines (1 - Tdap) 2015 Hepatitis B Vaccines (1 of 3 - 19+ 3-dose series) 2015 Pap Smear 2017 Depression Screening 12/15/2023 12/15/2022, 12/15/2022 SDOH Screening 12/15/2023 12/15/2022 COVID-19 Vaccine (1 - 2023-2 5 season) 2025 Influenza Vaccine (#1) 2025 12/06/2017 Tobacco Screening [...] patient's age to complete this topic Insurance [employer] C3 N FULL
[2025-08-01 09:50] LABS: Hematocrit 45.8 % (37.0-47.0); Hemoglobin 14.8 g/dl (12.0-16.0); Mean Corpuscular HGB Conc 32.3 g/dl (31.0-35.0); Mean Corpuscular Hemoglobin 27.4 pg (27.0-33.0); Mean Corpuscular Volume 84.7 fL (80.0-98.0); NRBC Abs Auto 0.000 X10*3/uL (0.0-0.012); NRBC Pct Auto 0.0 /100WBC (0.0-0.2); Platelet Count 203 X10*3/uL (160-400); Red Blood Count 5.41 X10*6/uL (4.20-5.50); White Blood Count 7.4 X10*3/uL (4.8-10.8)
[2025-08-01 10:37] LABS: Alanine Aminotransferase 17 U/L (0-31); Albumin Level 4.7 g/dL (3.5-5.0); Alkaline Phosphatase 61 U/L (39-117); Anion Gap 12 (12-20); Aspartate Amino Transferase 21 U/L (5-31); Blood Urea Nitrogen 9 mg/dL (9-16); Calcium 9.2 mg/dL (8.4-10.2); Carbon Dioxide 24 mmol/L (22-29); Chloride 108 mmol/L (96-108); Estimated Glomerular Filt Rate > 60; Magnesium 2.1 mg/dL (1.6-2.6); Potassium 3.5 mmol/L (3.3-5.1); Sodium 140 mmol/L (135-145); Total Protein 7.7 g/dL (6.5-8.0)
[2025-08-01 11:06] LABS: Folate 13.6 ng/mL (> or = 4.0); Vitamin B12 561 pg/mL (200-900)
== END 2025-08-01 08:24 | disposition home or self-care (01) ==
LOC: HO.US 08:23
PROVIDERS: PCP Registered Nurse; Visit Provider Internal Medicine
DX: K80.20 Calculus of gallbladder without cholecystitis without obstruction (principal); K91.2 Postsurgical malabsorption, not elsewhere classified
CPT/HCPCS: 36415; 76700; 80053; 82306; 82607; 82746; 83735; 84446; 84590; 85027

== ENCOUNTER → 2025-08-01 08:27 | Outpatient (BNV) | payer MEDICAID, SELFPAY | PROVIDERS: PCP Registered Nurse; Visit Provider Specialist | DX: K80.20 Calculus of gallbladder without cholecystitis without obstruction (principal); K76.0 Fatty (change of) liver, not elsewhere classified | CPT/HCPCS: 76700 ==

== ENCOUNTER 2025-09-17 10:51 | Outpatient (AMB) | payer MEDICAID, SELFPAY ==
[2025-09-17 10:54] VITALS: BP 110/80; PULSE 120; O2SAT 97; BMI 18.3
--- NOTE | 2025-09-17 10:54 | MHC.OFFVIS ---
Vital Signs 09/17/25 10:54 Height 5 ft Weight 93 lb 11.143 oz BMI 18.3 BP 110/80 Blood Pressure Location Lt brachial Position Sitting Pulse 120 H Pulse Source Pulse Oximeter Pulse Oximetry (%) 97 Oxygen Delivery Method Room Air Intake Visit Reasons: asthma Vice President Education Required: Yes Vice President Education Services: Vice President Education Offered & Declined Vice President Education Name: MD speaks kiswahili Accompanied by: Mother Allergies ibuprofen (From Advil) Adverse Reaction (Severe, Verified 09/17/25 10:56) Swelling HPI Comments Details: The patient is a 29 year woman who was born prematurely required intubation initially upon . She did require bowel resection now with short-bowel syndrome. Recently she moved from [place] to the [facility] about 2 years ago. Overall the patient has been complaining of worsening shortness of breath. It has been happening now for the last several months. She denies ever having respiratory issues in the past suggesting less likely congenital issue. But the question of a broncho-pulmonary dysplasia (BPD) was brought up. The patient has not had any imaging studies to review or pulmonary function studies therefore I will order those. She was also given a rescue inhaler that has been partially helpful. She also will send a maintenance inhaler although she had not used it yet. She is not where the name. On examination she did have some inspiratory wheezing and some diminished breath sounds bilaterally. Therefore will have to address for any upper airway obstruction issues and or obstructive airway disease. The patient should start the inhaler that she was provided initially. Will also request blood work in addition to pulmonary function studies and chest x-ray. When she starts the inhaler over the weekend she is going to try that. If she is not better she is going to call the office and will send her additional therapies. When she gets her x-ray and PFTs and blood work she will return for follow-up. 01/19/2023 the patient is here for a pulmonary follow-up visit. Overall the patient is doing a lot better. She did take the prednisone and did help her. In addition to that she started the Symbicort and she does use it twice a day. She does rinse her mouth well. Her chest tightness and shortness of breath have improved. She is back to her baseline. She is reassured. We did review her allergy testing she does have some slight allergies and can consider allergy therapy such as singular in the near future. In addition to that the patient had pulmonary function studies. But, the patient could not complete them because she could not follow the instructions in complete the maneuvers. The a chest x-ray was reassuring without any acute disease. No evidence of any pulmonary dysplasia or congenital lung disease that I could appreciate. She likely has allergic asthma and did have some component of stridor which at this point has improved. She has responded well to the Symbicort. If she has any issues she can always call and we can always start Singulair. Otherwise will follow-up in the fall 2022. 11/22/2023 the patient is here for a pulmonary follow-up visit. Overall the patient has been doing well. She does uses Symbicort. She does use it as needed only when she feels chest tightness. She feels like she is doing well. She does not use it often typically less than twice a week. She has not had to use her rescue inhaler. She does have allergies including dust mites. She does not have any carpets although explained to the family that even the bedding can be an issue. She is also allergic to cover chest. There other things that she is allergic to that we may have not checked. I do believe that she has allergic asthma. Therefore, based on the fact that she still having some wheezing on examination I do believe that singular be a good option for her. Therefore she will go ahead and started at nighttime. We did review her last chest x-ray demonstrating just have him hyperinflation explained to them that is related to the asthma. In addition to that we did review her blood work which is reassuring otherwise. Will follow-up in the fall. If the patient has any issues prior to that she will call for an earlier assessment. 07/26/2024 the patient is here for a pulmonary follow-up visit. Overall the patient continues to do well. She does respond well to the Singulair. She does take it every night. Sometimes she forgets and then after a week she started noticing worsening symptoms. She does have worsening allergies and asthma symptoms in the summer. Typically in the winter months she is able to cut back. It is reasonable for her to use her Singulair seasonally. In the meantime she has a Symbicort inhaler. She has not had to use her rescue inhaler which is reassuring. She is stable from a pulmonary standpoint. No additional therapies warranted. If the patient has any worsening symptoms she will call otherwise will follow-up in a year's time. 09/17/2025 the patient is here for pulmonary follow-up visit. Since we last seen her the patient had been doing fine but recently she started developing a upper respiratory illness. She has been coughing more chest congestion. Some phlegm discolored. Her asthma has also been more active and she has been using her rescue inhaler more often. She does use Symbicort and also has a rescue inhaler. I will make sure to send to the pharmacy. In the meantime will send her a course of Z-Casey in addition to a Medrol Casey if she gets worse. But for now she is doing okay she will continue with the current respiratory therapy if she feels like she is having any worsening symptoms she can always call. Will follow-up in the spring. [facility] Medical History Asthma Stridor Dyspnea Surgical History History of resection of small bowel H/O resection of large bowel Family History Mother Uterine cancer Hyperthyroidism Asthma Maternal Grandfather Stomach cancer Social History Household Members Other:: mother Alcohol intake: never Patient Tobacco Use Status: Never used Tobacco Review of Systems Const Denies fatigue Eyes Denies change in vision and Denies itchy eyes ENT Denies change in voice Card Denies chest pain and Denies dyspnea on exertion Resp Reports cough, Denies dyspnea on exertion and Reports wheezing GI Reports no additional complaints Musc Reports no additional complaints Skin/Breast Reports rash Neuro Reports no additional complaints Endo Reports no additional complaints and Denies fatigue Tucker/Lymph Denies easy bruising Aller/Immun Denies itchy eyes and Reports wheezing Physical Exam Vital Signs: Last Vital Signs Pulse 120 H 09/17/25 10:54 BP 110/80 09/17/25 10:54 Pulse Ox 97 09/17/25 10:54 Oxygen Delivery Method Room Air 09/17/25 10:54 BMI result Body Mass Index 18.3 Const General: comfortable HEENT Head: Yes normocephalic Neck Neck: Yes supple Chest Chest palpation & inspection: normal inspection of the chest Resp Effort & Inspection: normal respiratory effort and no stridor Auscultation: wheezes and diminished lung sounds Cardio Rate: regular rate Rhythm: regular rhythm Heart sounds: S1 normal heart sound present and S2 normal heart sound present GI Palpation (GI): Soft to palpation Skin General skin exam: no rashes or lesions noted Extrem General: Yes no clubbing, cyanosis or edema Assessment & Plan Assessment & Plan (1) Asthma: Code(s): J45.909 - Unspecified asthma, uncomplicated Category: Medical Qualifiers: Asthma complication type: uncomplicated Asthma persistence: persistent Asthma severity: moderate Qualified Code(s): J45.40 - Moderate persistent asthma, uncomplicated (2) Dyspnea: Comment: resolved Code(s): R06.00 - Dyspnea, unspecified Category: Medical Qualifiers: Dyspnea type: shortness of breath Qualified Code(s): R06.02 - Shortness of breath Plan continue Symbicort BID CHARISSA as needed continue singulair, seasonally ok start Zpack Medrol pk if no better F/U 6-12 months Medications: New azithromycin 500 mg PO DAILY 5 tabs 0RF 5 days budesonide-formoterol 80-4.5 mcg/actuation (Symbicort) 2 puffs inhalation BID 10.2 grams 11RF methylprednisolone (Medrol (Casey)) PO PER PKG DIR 21 ea 0RF 6 days albuterol sulfate 2.5 mg (3 mL) inhalation Q4H PRN 90 mL 11RF shortness of breath or wheezing 30 days Changed From albuterol sulfate 90 mcg/actuation (Proventil HFA) 2 puffs inhalation Q6H PRN wheezing To albuterol sulfate 90 mcg/actuation 2 puffs inhalation Q6H PRN 8.5 grams 11RF wheezing Refilled montelukast (Singulair) 10 mg PO BEDTIME 30 tabs 11RF 30 days J45.909 - Unspecified asthma, uncomplicated Coding Level of Care Code Est Pt Level 4 (52966) Diagnoses Moderate persistent asthma without complication J45.40 Asthma complication type: uncomplicated Asthma persistence: persistent Asthma severity: moderate Shortness of breath R06.02 Dyspnea type: shortness of breath Time Spent (min) 16
== END 2025-09-17 11:21 | disposition home or self-care (01) ==
LOC: HO.HPS 10:51
PROVIDERS: PCP Registered Nurse; Visit Provider Hospitalist
DX: J45.40 Moderate persistent asthma, uncomplicated (principal); R06.02 Shortness of breath
CPT/HCPCS: 99214

== ENCOUNTER → 2025-09-17 10:51 | Outpatient (BNVA) | payer MEDICAID, SELFPAY | PROVIDERS: PCP Registered Nurse; Visit Provider Hospitalist | DX: J45.40 Moderate persistent asthma, uncomplicated (principal); Z79.899 Other long term (current) drug therapy | CPT/HCPCS: 99212 ==